=== PATIENT | male | born 1970 | race Caucasian/White ===

== ENCOUNTER 2020-04-22 23:23 | Emergency (ER) | payer OTHER ==
[~2020-04-22] VITALS: Ht 180.3 cm; Wt 113.0 kg
[2020-04-22] MEDS ORDERED: PERCOCET 10/31 COMBO PO (23:43)
[2020-04-22] MEDS ORDERED: PERCOCET 5/325M1 TAB PO (23:49)
[2020-04-23 04:00] VITALS: BP 142/74
== END 2020-04-23 04:00 | disposition home or self-care (01) ==
LOC: ED 23:23
DX: G89.3 Neoplasm related pain (acute) (chronic) (principal); R10.9 Unspecified abdominal pain; C18.9 Malignant neoplasm of colon, unspecified; C79.11 Secondary malignant neoplasm of bladder; Z93.3 Colostomy status

== ENCOUNTER 2020-05-12 02:28 | Emergency (ER) | payer OTHER ==
[~2020-05-12] VITALS: Ht 180.3 cm; Wt 109.0 kg
[~2020-05-12 02:28] MED LIST: PERCOCET 10/31 COMBO PO; PERCOCET 5/325M1 TAB PO
[2020-05-12] MEDS ORDERED: CETUXIMAB C-LINE (03:21)
[2020-05-12] MEDS ORDERED: PHENERGAN25 MG/TAB PO (03:22)
[2020-05-12 03:23] LABS: HEMATOCRIT 33.4 % (39.0-50.0); HEMOGLOBIN 10.7 g/dl (14.0-18.0); IMMATURE GRANULOCYTES 0.4 % (0.0-5.0); MEAN CELL VOLUME 86.8 fL CALC (80.0-100.0); MEAN CORPUSCULAR HGB 27.8 pG CALC (26.0-32.0); NEUT# 10.37 thou/uL (1.82-7.42); RED BLOOD COUNT 3.85 mill/uL (4.70-6.10); RED CELL DISTRI WIDTH 14.1 % (11.5-15.5)
[2020-05-12] MEDS ORDERED: DITROPAN XL10 MG PO (03:23)
[2020-05-12] MEDS ORDERED: TRAZODONE50 MG PO (03:24)
[2020-05-12] MEDS ORDERED: OXYCONTIN10 MG PO (03:24)
[2020-05-12 03:38] LABS: ALBUMIN 4.2 g/dL (3.2-5.0); ALKALINE PHOSPHATASE 104 u/l (38-126); AMYLASE 58 u/l (30-110); ANION GAP 14 (6-22 (CALC)); BILIRUBIN, TOTAL 0.8 mg/dL (0.0-1.4); BUN 28 mg/dL (9-20); BUN/CREATININE RATIO 20 (12-20 (CALC)); CARBON DIOXIDE 26 mmol/l (22-30); CHLORIDE 98 mmol/l (95-108); CREATININE 1.4 mg/dL (0.7-1.3); GFR 54 ML/MIN (>=60 (CALC)); GFR FOR AFR.AMER. > 60 ML/MIN (>=60 (CALC)); LIPASE 35 u/l (23-300); MAGNESIUM 1.8 mg/dL (1.6-2.3); POTASSIUM 4.6 mmol/l (3.5-5.1); SGOT/AST 61 u/l (17-59); SODIUM 133 mmol/l (137-146); TOTAL PROTEIN 7.6 g/dL (6.3-8.2)
[2020-05-12 03:59] LABS: URINE BILIRUBIN - DIPSTICK NEGATIVE (NEGATIVE); URINE BLOOD DIPSTICK LARGE (NEGATIVE); URINE COLOR YELLOW; URINE GLUCOSE - DIPSTICK NEGATIVE (NEGATIVE); URINE KETONE NEGATIVE (NEGATIVE); URINE PH 5.5 (4.5-8.0); URINE PROTEIN - DIPSTICK 30 mg/dL (NEG-TRACE); URINE SPECIFIC GRAVITY 1.025; URINE UROBILINOGEN - DIPSTICK 0.2 E.U./dL (0.2)
[2020-05-12 04:03] LABS: URINE LEUK ESTERASE SMALL (NEGATIVE); URINE NITRITE - DIPSTICK POSITIVE (Negative)
[2020-05-12 04:29] LABS: URINE BACTERIA MANY hpf; URINE SQUAMOUS EPITHELIAL CELL FEW EPI/hpf (0-FEW); URINE WBC 50-100 WBC/hpf (0-5)
[2020-05-12] MEDS ORDERED: GOLYTEL1 PO (04:32)
[2020-05-12] MEDS ORDERED: MIRALAX3350 N1 PO (04:32)
[2020-05-12 04:37] VITALS: BP 181/85
== END 2020-05-12 04:50 | disposition home or self-care (01) ==
LOC: ED 02:28
PROVIDERS: Family Medicine
DX: N39.0 Urinary tract infection, site not specified (principal); B96.20 Unspecified Escherichia coli [E. coli] as the cause of diseases classified elsewhere; K59.01 Slow transit constipation; C18.9 Malignant neoplasm of colon, unspecified; C79.9 Secondary malignant neoplasm of unspecified site; Z93.3 Colostomy status; Z85.51 Personal history of malignant neoplasm of bladder